=== PATIENT | male | born 1960 | race Hispanic/Latino ===

== ENCOUNTER 2017-04-30 14:26 | Emergency (ER) | payer BC ==
[2017-04-30 14:33] VITALS: BMI 23.7
[2017-04-30] MEDS ORDERED: Sodium Chloride 0.9% 1,000 ML IV STA (15:02)
--- NOTE | 2017-04-30 15:11 | ED PDOC ---
HPI: Abdomen Time Seen by Provider: 04/30/17 14:48 Chief Complaint (Nursing): Dizziness/Lightheaded Chief Complaint (Provider): Abdominal pain History Per: Patient History/Exam Limitations: no limitations Onset/Duration Of Symptoms: Other (1.5 years) Outside of [place] travel?: No Additional Complaint(s): Pt reports constant nausea and abdominal pain X 1.5 years, under care of [facility] @ [facility], had endoscopy (dx ulcer) and colonscopy (dx polyps ) 2 months ago, had cystoscopy for h/o hematuria last year (normal). 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 States only medication that relieves abdominal pain is Librium. Denies fever, CP, SOB, vomiting, constipation, diarrhea, dysuria, hematuria. Pt requesting "something to calm me down". Past Medical History Reviewed: Nursing Documentation, Vital Signs Vital Signs: Last Vital Signs Temp 98 F 04/30/17 20:24 Pulse 74 04/30/17 20:59 Resp 18 04/30/17 20:59 BP 116/58 L 04/30/17 20:59 Pulse Ox 96 04/30/17 20:59 - Medical History PMH: Anxiety, COPD, Depression, Fractures (RIBS ,STERNUM), HTN, Hypercholesterolemia, Hyperlipidemia Denies: Diabetes, Hepatitis, HIV, Chronic Kidney Disease, Seizures, Sexually Transmitted Disease - Surgical History Surgical History: Coronary Stent (x 5), Endoscopy Denies: Pacemaker - Family History Family History: States: Unknown Family Hx - Social History Current smoker - smoking cessation education provided: No Alcohol: > 2 Drinks/Day - Immunization History Hx Tetanus Toxoid Vaccination: No Hx Influenza Vaccination: No Hx Pneumococcal Vaccination: No - Home Medications Home Medications: Ambulatory Orders Medication Instructions Recorded Aspirin [Ecotrin] 81 mg PO DAILY 06/21/15 Atorvastatin [Lipitor] 40 mg PO DAILY 06/21/15 Clopidogrel [Plavix] 75 mg PO QAM 06/21/15 Albuterol HFA [Ventolin HFA 90 2 puff IH [id number] PRN #1 puff 04/12/17 mcg/actuation (8 g)] Famotidine [Pepcid] 20 mg PO BID PRN #24 tab 04/12/17 - Allergies Allergies/Adverse Reactions: Allergies Allergy/AdvReac Type Severity Reaction Status Date / Time No Known Allergies Allergy Verified 04/30/17 14:34 Review of Systems Constitutional: Negative for: Fever, Chills Cardiovascular: Negative for: Chest Pain, Palpitations Respiratory: Negative for: Cough, Shortness of Breath Gastrointestinal: Positive for: Nausea, Abdominal Pain. Negative for: Vomiting , Diarrhea, Constipation, Melena, Hematochezia, Hematemesis Genitourinary Male: Negative for: Dysuria, Hematuria Musculoskeletal: Negative for: Back Pain Skin: Negative for: Rash, Lesions Neurological: Negative for: Weakness, Numbness, Headache, Dizziness Physical Exam - Reviewed Nursing Documentation Reviewed: Yes Vital Signs Reviewed: Yes - Physical Exam Appears: Positive for: Well, No Acute Distress Skin: Positive for: Normal Color, Warm, Dry Eye Exam: Positive for: Normal appearance, EOMI, PERRL Cardiovascular/Chest: Positive for: Regular Rate, Rhythm Respiratory: Positive for: Normal Breath Sounds Gastrointestinal/Abdominal: Positive for: Bowel Sounds, Soft, Tenderness ( Generalized, >suprapubic). Negative for: Mass, Distended, Guarding, Rebound Back: Positive for: Normal Inspection. Negative for: L CVA Tenderness, R CVA Tenderness Extremity: Positive for: Normal ROM Neurologic/Psych: Positive for: Alert, firearms instructor II-XII, Oriented. Negative for: Motor/Sensory Deficits - Laboratory Results Result Diagrams: 04/30/17 15:20 04/30/17 16:21 - ECG Interpretation Of ECG: NSR @ 70, no ST-T changes. O2 Sat by Pulse Oximetry: 99 Pulse Ox Interpretation: Normal Medical Decision Making Medical Decision Makin yo with chronic nausea and chronic abdominal pain. - labs - EKG - CT abd/pelvis - Zofran - Protonix Accession No. : [id number] Patient Name / ID : HEATH Ibrahim / [id number] Exam Date : 04/30/2017 15:50:00 ( Approved ) Study Comment : Sex / Age : M / 56Y Creator : luann choi Dictator : Jimbo Taylor MD Internet Site Designer : Stacker : Jimbo Taylor MD Approver2 : Report Date : 04/30/2017 16:05:33 My Comment : HISTORY: Abd pain COMPARISON: No prior. TECHNIQUE: Chest PA and lateral FINDINGS: LUNGS: No acute infiltrate is appreciated. However, the lungs appear somewhat hyperinflated and the hemidiaphragms are also identified. Consider possible COPD. PLEURA: No significant pleural effusion identified. No pneumothorax apparent. CARDIOVASCULAR: Normal. OSSEOUS STRUCTURES: No significant abnormalities. VISUALIZED UPPER ABDOMEN: Normal. OTHER FINDINGS: None. IMPRESSION: Potential COPD. No acute infiltrate or cardiac disease appreciable. Accession No. : [id number] Patient Name / ID : HEATH Ibrahim / [id number] Exam Date : 04/30/2017 17:58:39 ( Approved ) Study Comment : Sex / Age : M / 56Y Creator : Sanju Collier MD Dictator : Internet Site Designer : Stacker : Sanju Collier MD Approver2 : Report Date : 04/30/2017 19:02:46 My Comment : PROCEDURE: CT scan abdomen pelvis dated 04/30/2017. HISTORY: General abdominal pain with nausea. COMPARISON: No prior study available for comparison TECHNIQUE: Contiguous axial images of the pelvis of performed without. Coronal and Sagittal reformats generated. Radiation dose: Total exam DLP = 732.38 mGy-cm. This CT exam was performed using one or more of the following dose reduction techniques: Automated exposure control, adjustment of the mA and/or kV according to patient size, and/or use of iterative reconstruction technique. FINDINGS: LOWER THORAX: Minor passive slight dependent type atelectasis both lung bases right greater than left. There also appears to some minor scarring in the middle lobe region. No focal consolidation LIVER: Liver demonstrates normal size however there is mild to moderate diffuse fatty hepatic infiltration. Subtle low-attenuation along the left lobe liver bordering the fissure likely representing more discrete fatty infiltration. No obvious hepatic mass collection or calcification. GALLBLADDER AND BILE DUCTS: The gallbladder is physiologically distended. No definitive evidence of intraluminal gallbladder calculi. No pericholecystic fluid collections. . PANCREAS: The pancreas appears mildly atrophic and fatty replaced. SPLEEN: Spleen exhibits normal size and attenuation pattern without mass collection or calcification. ADRENALS: There are no adrenal lesions. KIDNEYS AND URETERS: Kidneys demonstrate relatively symmetric nephrograms. 3.2 x 2.85 cm of elliptical shaped partially exophytic cyst posteromedial aspect upper/ midpole left kidney. There may also be a tiny, sub cm exophytic cyst along the lateral mid to lower pole . BLADDER: Urinary bladder is incompletely distended which may in part account for thick- walled appearance. Muscular hypertrophy presumably contributes. Possibility of an intrinsic/invasive wall lesion not excluded. . REPRODUCTIVE: The prostate gland measures approximately 4.1 cm prostatic calcifications are present. In transverse dimension. . APPENDIX: Normal-appearing appendix of best seen on coronal image number [id number] perianal open BOWEL: Evaluation of the bowel is limited due to the lack of oral contrast material. Stomach is incompletely distended which presumably accounts for thick-walled appearance. Possibility of gastritis or other intrinsic/invasive wall lesion not excluded. Visualized loops of small bowel exhibit normal contour and caliber. No evidence of acute mechanical small bowel obstruction. Moderate amount of stool seen throughout the cecum and at ascending as well as proximal transverse colon. The remaining colon is relatively collapsed. No definitive abnormal mural wall thickening. PERITONEUM: Unremarkable. No fluid collection. No free air. LYMPH NODES: Unremarkable. No enlarged lymph nodes. VASCULATURE: Unremarkable. No aortic aneurysm. BONES: Mild multilevel degenerative spondylosis of the lower thoracic and lumbar spine. OTHER FINDINGS: None. IMPRESSION: Moderate fatty hepatic infiltration. There is wall thickening of the urinary bladder which is likely due to incomplete distention and muscular hypertrophy. Other intrinsic/invasive wall lesion not excluded. The prostate gland is also mildly prominent likely due to BPH with possible mild chronic bladder outlet obstruction. Correlation with PSA recommended. At least 2 left renal cysts. Disposition - Clinical Impression Clinical Impression: Chronic abdominal pain - Disposition Disposition: Routine/Home Disposition Time: 20:52 Condition: STABLE Additional Instructions: FOLLOW-UP WITH YOUR PMD AND RAILROAD SIGNAL OPERATOR WITHIN 2 DAYS FOR REEVALUATION. Instructions: Abdominal Pain (ED) Forms: [facility] ([place])
[2017-04-30 15:34] LABS: URINE BILIRUBIN NEGATIVE (NEGATIVE); URINE BLOOD NEGATIVE (NEGATIVE); URINE COLOR COLORLESS (YELLOW); URINE GLUCOSE (UA) NEG (Normal); URINE KETONE NEGATIVE (NEGATIVE); URINE LEUKOCYTE ESTERASE NEG Leu/uL (Negative); URINE PROTEIN NEGATIVE (NEGATIVE); URINE UROBILINOGEN 0.2-1.0 mg/dL (0.2-1.0)
[2017-04-30 15:38] LABS: BASO # 0.1 K/uL (0.0-0.2); BASO % 1.1 % (0.0-2.0); EOS # 0.1 K/uL (0.0-0.7); EOS % 1.3 % (0.0-4.0); HEMATOCRIT 39.2 % (35.0-51.0); LYMPH % 12.4 % (20.0-40.0); MEAN CELL VOLUME 101.3 fl (80.0-94.0); MEAN CORPUSCULAR HEMOGLOBIN 34.3 pg (27.0-31.0); MEAN CORPUSCULAR HGB CONC 33.8 g/dL (33.0-37.0); MEAN PLATELET VOLUME 7.9 fl (7.2-11.7); MONO # 0.7 K/uL (0.0-0.8); MONO % 9.1 % (0.0-10.0); NEUT # 6.2 K/uL (1.8-7.0); NEUT % 76.1 % (50.0-75.0); RED CELL DISTRIBUTION WIDTH 13.7 % (11.5-14.5); WHITE BLOOD COUNT 8.2 K/uL (4.8-10.8)
[2017-04-30 15:54] LABS: ALCOHOL SERUM < 10 mg/dl (0-10); LIPASE 174 U/L (23-300)
[2017-04-30 15:55] LABS: PARTIAL THROMBOPLASTIN TIME 29.4 Seconds (25.6-37.1)
[2017-04-30 16:41] LABS: ALB/GLOB RATIO 1.3 (1.0-2.1); ALKALINE PHOSPHATASE 61 U/L (38-126); ALT/SGPT 78 U/L (21-72); AST/SGOT 61 U/L (17-59); BILIRUBIN,TOTAL 0.6 mg/dl (0.2-1.3); BLOOD UREA NITROGEN 9 mg/dl (9-20); CALCIUM 8.6 mg/dL (8.4-10.2); CARBON DIOXIDE 26 mmol/L (22-30); CHLORIDE 103 mmol/L (98-107); GFR AFRICAN-AMERICAN > 60; GLUCOSE,RANDOM 99 mg/dL (75-110); POTASSIUM 4.4 MMOL/L (3.6-5.0); SODIUM 135 mmol/l (132-148); TOTAL PROTEIN 7.2 G/DL (6.3-8.2)
[2017-04-30] MEDS ORDERED: Iohexol 300 100 ML IJ ONE (17:54)
--- NOTE | 2017-04-30 19:04 | CT ---
PROCEDURE: CT scan abdomen pelvis dated 04/30/2017. HISTORY: General abdominal pain with nausea. COMPARISON: No prior study available for comparison TECHNIQUE: Contiguous axial images of the pelvis of performed without. Coronal and Sagittal reformats generated. Radiation dose: Total exam DLP = 732.38 mGy-cm. This CT exam was performed using one or more of the following dose reduction techniques: Automated exposure control, adjustment of the mA and/or kV according to patient size, and/or use of iterative reconstruction technique. FINDINGS: LOWER THORAX: Minor passive slight dependent type atelectasis both lung bases right greater than left. There also appears to some minor scarring in the middle lobe region. No focal consolidation LIVER: Liver demonstrates normal size however there is mild to moderate diffuse fatty hepatic infiltration. Subtle low-attenuation along the left lobe liver bordering the fissure likely representing more discrete fatty infiltration. No obvious hepatic mass collection or calcification. GALLBLADDER AND BILE DUCTS: The gallbladder is physiologically distended. No definitive evidence of intraluminal gallbladder calculi. No pericholecystic fluid collections. . PANCREAS: The pancreas appears mildly atrophic and fatty replaced. SPLEEN: Spleen exhibits normal size and attenuation pattern without mass collection or calcification. ADRENALS: There are no adrenal lesions. KIDNEYS AND URETERS: Kidneys demonstrate relatively symmetric nephrograms. 3.2 x 2.85 cm of elliptical shaped partially exophytic cyst posteromedial aspect upper/ midpole left kidney. There may also be a tiny, sub cm exophytic cyst along the lateral mid to lower pole . BLADDER: Urinary bladder is incompletely distended which may in part account for thick-walled appearance. Muscular hypertrophy presumably contributes. Possibility of an intrinsic/invasive wall lesion not excluded. . REPRODUCTIVE: The prostate gland measures approximately 4.1 cm prostatic calcifications are present. In transverse dimension. . APPENDIX: Normal-appearing appendix of best seen on coronal image number [id number] perianal open BOWEL: Evaluation of the bowel is limited due to the lack of oral contrast material. Stomach is incompletely distended which presumably accounts for thick-walled appearance. Possibility of gastritis or other intrinsic/invasive wall lesion not excluded. Visualized loops of small bowel exhibit normal contour and caliber. No evidence of acute mechanical small bowel obstruction. Moderate amount of stool seen throughout the cecum and at ascending as well as proximal transverse colon. The remaining colon is relatively collapsed. No definitive abnormal mural wall thickening. PERITONEUM: Unremarkable. No fluid collection. No free air. LYMPH NODES: Unremarkable. No enlarged lymph nodes. VASCULATURE: Unremarkable. No aortic aneurysm. BONES: Mild multilevel degenerative spondylosis of the lower thoracic and lumbar spine. OTHER FINDINGS: None. IMPRESSION: Moderate fatty hepatic infiltration. There is wall thickening of the urinary bladder which is likely due to incomplete distention and muscular hypertrophy. Other intrinsic/invasive wall lesion not excluded. The prostate gland is also mildly prominent likely due to BPH with possible mild chronic bladder outlet obstruction. Correlation with PSA recommended. At least 2 left renal cysts.
[2017-04-30 20:25] VITALS: TEMP 98
[2017-04-30 21:00] VITALS: BP 116/58; PULSE 74; RESP 18
--- NOTE | 2017-05-01 07:34 | RAD ---
HISTORY: Abd pain COMPARISON: No prior. TECHNIQUE: Chest PA and lateral FINDINGS: LUNGS: No acute infiltrate is appreciated. However, the lungs appear somewhat hyperinflated and the hemidiaphragms are also identified. Consider possible COPD. PLEURA: No significant pleural effusion identified. No pneumothorax apparent. CARDIOVASCULAR: Normal. OSSEOUS STRUCTURES: No significant abnormalities. VISUALIZED UPPER ABDOMEN: Normal. OTHER FINDINGS: None. IMPRESSION: Potential COPD. No acute infiltrate or cardiac disease appreciable.
--- NOTE | 2017-05-02 11:52 | CARD ---
APPROVED REPORT EKG Measurement Heart [id number] <Conclusion> Normal sinus rhythm Normal ECG
[2017-05-11 11:27] VITALS: O2SAT 99
== END 2017-04-30 21:30 | disposition home or self-care (01) ==
LOC: H.ER 14:26
DX: R10.9 Unspecified abdominal pain (principal); G89.29 Other chronic pain; N28.1 Cyst of kidney, acquired; Z86.59 Personal history of other mental and behavioral disorders; Z79.82 Long term (current) use of aspirin; Z95.5 Presence of coronary angioplasty implant and graft; I10 Essential (primary) hypertension; E78.00 Pure hypercholesterolemia, unspecified; J44.9 Chronic obstructive pulmonary disease, unspecified
CPT/HCPCS: 71020; 74177; 80053; 81003; 82948; 83690; 85025; 85610; 85730; 93005; 99285; C9113; G0480; J7040; Q9967